=== PATIENT | female | born 1990 | race Caucasian/White ===

== ENCOUNTER 2016-07-20 10:46 | Emergency (ER) | payer BC, OTHER ==
[~2016-07-20] VITALS: Wt 57.0 kg
[~2016-07-20 10:46] MED LIST: [UNRECOGNIZED DRUG - REMARK]
--- NOTE | 2016-07-20 11:57 | RADRPT ---
PROCEDURE: XR Left Ankle CLINICAL INDICATION: Pain, twisted TECHNIQUE: Standard 3 view radiographs were submitted. COMPARISON: None FINDINGS: Osseous structures: Well mineralized and intact with no fracture or destructive process identified. Joint spaces: Well maintained with no significant erosions or spurring evident. Soft tissues: Appear unremarkable. IMPRESSION: Unremarkable left ankle. Physician Shashi Date Time Electronically viewed and signed by Gurpreet Simmons Physician on 07/20/2016 11:56 /
[2016-07-20] MEDS ORDERED: HYDROCODONE/APAP (5/325) TAB PO ONE (12:00)
--- NOTE | 2016-07-20 12:06 | RADRPT ---
PROCEDURE: XR Bilateral Knees CLINICAL INDICATION: Bilateral pain TECHNIQUE: AP, Kuldeep and lateral views were obtained of each knee. COMPARISON: None FINDINGS: Osseous structures: appear well mineralized and intact with no fracture or destructive process iden tified. Joint spaces: are well maintained, with no significant spurring, erosion or joint effusion evident. Soft tissues: appear unremarkable. IMPRESSION: Unremarkable bilateral knee study. Physician Shashi Date Time Electronically viewed and signed by Gurpreet Simmons Physician on 07/20/2016 12:06 /
[2016-07-20] MEDS ORDERED: NAPR-688 PO (12:40)
[2016-07-20] MEDS ORDERED: HYDR-906 PO (12:40)
--- NOTE | 2016-07-20 12:50 | ERD ---
ER Documentation Chief Complaint Date/Time DATE: 07/20/16 TIME: 12:46 Chief Complaint LEFT ANKLE PAIN/INJURY HPI This 26-year-old female has had left ankle pain since she twisted her ankle performing tae mary do recently. She is ambulatory but with pain. Also states that she has had bilateral knee pain when she runs long distances for some time as well. ROS All systems reviewed and are negative except as per history of present illness. Medications Home Meds Active Scripts Hydrocodone/Acetaminophen ([place] 5-325 Tablet) 1 Each Tablet, 1 EACH PO Q6, #20 TAB Prov:BROOKE ASHFORD DO 07/20/16 Naproxen* (Naproxen*) 500 Mg Tablet, 500 MG PO BID, #27 TAB Prov:BROOKE ASHFORD DO 07/20/16 Reported Medications [Unk Med For Uti] No Conflict Check 12/29/11 Allergies Allergies: Coded Allergies: No Known Allergy (Unverified , 12/29/11) PMhx/Soc Medical and Surgical Hx: pt denies Surgical Hx History of Surgery: No Anesthesia Reaction: No Hx Neurological Disorder: No Hx Respiratory Disorders: No Hx Cardiac Disorders: No Hx Psychiatric Problems: No Hx Miscellaneous Medical Probl: Yes (seizure) Hx Alcohol Use: No Hx Substance Use: No Hx Tobacco Use: No Smoking Status: Never smoker Physical Exam Vitals Vital Signs Date Time Temp Pulse Resp B/P Pulse Ox O2 Delivery O2 Flow Rate FiO2 07/20/16 10:49 98.1 82 18 122/60 98 Physical Exam Const: [] No distress Head: Atraumatic Ext: Left ankle with purpuric discoloration below the malleolus on the lateral side, moderate tenderness to palpation below her lateral malleolus. No pain on load bearing axial. Right knee pain with no tenderness to palpation no ligamentous laxity. Left knee also no tenderness palpation negative is laxity but does have a area of swelling on the popliteal fossa IV consistent with Caldwell 's cyst. This is nontender. Neur: Awake and alert, light touch intact extremities. Psych: Normal Mood and Affect Results 24 hrs Current Medications Medications (Trade) Dose Ordered Sig/Mamadou Route PRN Reason Start Time Stop Time Status Last Admin Dose Admin Acetaminophen/ Hydrocodone Bitart ([place] (5/325)) 1 tab ONCE ONCE PO 07/20/16 12:00 07/20/16 12:01 DC 07/20/16 12:03 Procedures/MDM Left ankle sprain likely anterior talar fibular ligament with partial tear. No bony abnormalities on x-ray of the ankle or bilateral knees which the patient only gets pain when she runs for long distances. I'm recommending that the patient obtain MRI for soft tissue injury. Patient does have good primary care follow-up IV included structures to obtain an MRI and admit the patient continues to experience problems with her extremities. She is provided with crutches and a splint was applied to her left ankle. A Pepe discharging her with naproxen and [place]. She was given one [place] tablet emergency room which I' ll produce her pain. Departure Diagnosis: Primary Impression: Bakers cyst Additional Impression: Left ankle sprain Condition: Stable Patient Instructions: Treating Ankle Sprains, Caldwell's Cyst Additional Instructions: Call your primary care doctor TOMORROW for an appointment during the next 2-3 days. Obtain an appointment for an MRI from your primary doctor. See the doctor sooner or return here if your condition worsens before your appointment time. BROOKE ASHFORD DO Jul 20, 2016 12:50
== END 2016-07-20 13:16 | disposition home or self-care (01) ==
LOC: FTE 10:46
DX: M71.22 Synovial cyst of popliteal space [Baker], left knee (principal); S93.402A Sprain of unspecified ligament of left ankle, initial encounter; X50.9XXA Other and unspecified overexertion or strenuous movements or postures, initial encounter; Y92.9 Unspecified place or not applicable
CPT/HCPCS: 73610